=== PATIENT | female | born 1995 | race Hispanic/Latino ===

== ENCOUNTER 2023-01-20 18:05 | Emergency (ER) | payer OTHER ==
--- OUTSIDE RECORDS SUMMARY | 2023-01-20 18:10 | XMS REPORT | Continuity of Care Document ---
:1995 Author Organization [facility] t Address [address] [facility] [address] [place] [address] Care Team Providers Name Role Phone Pcp-None Primary Care Physician Unavailable MEGGAN JUNIOR Attending Clinician Unavailable ENZO BRADFORD Attending Clinician Unavailable Enzo Bradford Attending Clinician Unavailable Enzo Bradford DO Attending Clinician VASILIY CONTRERAS Attending Clinician Unavailable JIN GALINDO Attending Clinician Unavailable Cosme Yoder Attending Clinician Unavailable ANSLEY BARROSO Attending Clinician Unavailable ROMÁN CABRERA Attending Clinician Unavailable KIN LUCERO Attending Clinician Unavailable CORNELL LERMA Attending Clinician Unavailable JOSE GUADALUPE OCHOA Attending Clinician Unavailable DR JASE SAMUELS Attending Clinician Un available YOCASTA BURNETT Attending Clinician Unavailable DR GLEN GALEAS Attending Clinician Unavailable JEREMY KINNEY Attending Clinician Unavailable DR LIDA NIETO Attending Clinician Unavailable DR JASE SAMUELS Admitting Clinician Un available DR GLEN GALEAS Admitting Clinician Unavailable DR LIDA NIETO Admitting Clinician Unavailable Payers Payer Name Policy Type Policy Number Effective Date Expiration Date S [facility] [id number] 2022 00:00:00 [facility] [id number] 2022 00:00:00 2023 00:00 :00 Problems This patient has no known problems. Allergies, Adverse Reactions, Alerts Allergy Allergy Status Severity Reaction(s) Onset Inactive Treating Comm ents Source Name Type Date Date Clinician No Known [facility] 00:00: s 00 No Known DA Active U 2020-09 [facility] 10-17 Allergie 00:00: s 00 No Known DA Active [facility] Allergie Dodge s Social History Social Habit Start Date Stop Date Quantity Comments Source ASSERTION 2022-06-30 [facility] 00:00:00 Sexual orientation 2021-05-02 Heterosexual [facility] 14:50:24 (finding) Gender identity 2020-12-26 Identifies as [facility] 10:25:04 female gender (finding) Exposure to 2022-10-28 2022-11-07 Not sure [facility] SARS-CoV-2 (event) 00:00:00 13:28:00 Alcohol intake 2022-11-07 2022-11-07 [facility]00 of alcohol (finding) History of Social 2022-11-07 2022-11-07 [facility] function 00:00:00 00:00:00 Sex Assigned At [birth year] F [facility] alth 00:00:00 00:00:00 Smoking Status Start Date Stop Date Source Never smoked tobacco [facility] Medications This patient has no known medications. Vital Signs Vital Name Observation Time Observation Value Comments Source Height 2021-05-01 06:55:00 157.48 CM Weight 2021-05-01 06:55:00 54.43 KG Height 2021-04-04 15:50:00 165.1 CM Weight 2021-04-04 15:50:00 53.65 KG Height 2021-02-06 20:12:00 165.1 CM Weight 2021-02-06 20:12:00 54.43 KG Procedures This patient has no known procedures. Encounters Start End Encounter Admission Attending Care Care Encounter Source Date/Time Date/Time Type Type Clinicians Facility Department ID 2022-11-[address] [facility] [id number] [facility] 09:05:07 [id number] [facility] 2022-10-[address] [facility] [id number] [facility] 17:22:42 [id number] [facility] 2021-08-18 Inpatient [facility] [id number] [facility] 01:53:00 56 2023-01-24 2023-01-24 Outpatient MEGGAN JUNIOR [facility] [id number] [facility] 00:00:00 00:00:00 2023-01-17 2023-01-17 Outpatient MEGGAN JUNIOR [facility] [id number] [facility] 00:00:00 00:00:00 2023-01-13 2023-01-13 Outpatient SUZETTE, [facility] [id number] [facility] 08:30:18 08:54:09 KAIZEEN 2023-01-03 2023-01-03 Outpatient SUZETTE, [facility] [id number] [facility] 15:03:23 16:12:35 KAIZEEN 2022-12-06 2022-12-06 Outpatient SUZETTE, [facility] [id number] [facility] 09:08:48 10:34:52 KAIZEEN 2022-11-22 2022-11-22 Outpatient Elective Suzette, [facility] [id number] [facility] 13:09:00 13:10:00 Kaizeen 54 2022-11-22 2022-11-22 Outpatient Elective Suzette, [facility] [id number] [facility] 13:09:00 13:09:00 Kaizeen 54 2022-11-07 2022-11-07 Outpatient SUZETTE, [facility] [id number] [facility] 13:30:31 15:22:35 KAIZEEN 2022-11-05 2022-11-05 OB Suzette, [facility] [id number] [place] [address] 17:30:00 17:50:00 Enzo SHRESTHA [id number] [facility] .[id number] [facility] [id number] [address] 2022-11-05 2022-11-05 Outpatient SUZETTE, [facility] [id number] [facility] 00:00:00 00:00:00 KAIZEEN 2021-09-18 2021-09-18 Outpatient DIANE, VASILIY [facility] [id number] [facility] 00:00:00 00:00:00 2021-09-04 2021-09-04 Outpatient JEGANATHAN, [facility] [id number] [facility] 00:00:00 00:00:00 JIN 2021-09-04 2021-09-04 Outpatient JEGANATHAN, [facility] [id number] [facility] 00:00:00 00:00:00 JIN 2021-08-21 2021-08-21 Outpatient JEGANATHAN, [facility] [id number] [facility] 00:00:00 00:00:00 JIN 2021-08-18 2021-08-18 Outpatient Harms, [facility] [id number] [facility] 01:44:00 01:44:00 Cosme 56 2021-08-17 2021-08-17 Outpatient Harms, [facility] [id number] [facility] 21:51:00 21:51:00 Cosme 32 2021-08-17 2021-08-17 Outpatient Urgent Harms, [facility] [id number] [facility] 11:16:00 11:16:00 Cosme 15 2021-08-09 2021-08-09 Outpatient BARROSO, [facility] [id number] [facility] 08:12:38 11:31:47 ANSLEY 2021-08-02 2021-08-02 Outpatient CABRERA, [facility] [id number] [facility] 09:06:01 12:05:38 ROMÁN 2021-07-26 2021-07-26 Outpatient CABRERA, [facility] [id number] [facility] 08:18:21 08:56:35 ROMÁN 2021-07-19 2021-07-19 Outpatient JEGANATHAN, [facility] [id number] [facility] 00:00:00 00:00:00 JIN 2021-07-10 2021-07-10 Outpatient SEALOCK, [facility] [id number] [facility] 10:46:05 11:04:35 KIN 2021-07-05 2021-07-05 Outpatient CABRERA, [facility] [id number] [facility] 15:29:18 16:02:25 ROMÁN 2021-06-19 2021-06-19 Outpatient LERMA, [facility] [id number] [facility] 16:27:44 16:57:06 ENJOLI 2021-06-19 2021-06-19 Outpatient LERMA, [facility] [id number] [facility] 15:52:34 16:49:47 ENJOLI 2021-06-11 2021-06-11 Outpatient VASILIY CONTRERAS [facility] [id number] [facility] 00:00:00 00:00:00 2021-06-05 2021-06-05 Outpatient JEGANATHAN, [facility] [id number] [facility] 00:00:00 00:00:00 JIN 2021-05-07 2021-05-07 Outpatient LERMA, [facility] [id number] [facility] 09:57:28 11:45:44 ENJOLI 2021-05-07 2021-05-07 Outpatient JEGANATHAN, [facility] [id number] [facility] 00:00:00 00:00:00 JIN 2021-05-04 2021-05-04 Outpatient OCHOA, [facility] [id number] [facility] 00:00:00 00:00:00 JOSE GUADALUPE 2021-05-01 2021-05-01 Outpatient E YOJANA-IBITO [facility] OB [id number] [facility] 09:49:00 13:09:00 Elvira UNDERWOODa [facility] 2021-04-30 2021-04-30 Outpatient JEGANATHAN, [facility] [id number] [facility] 00:00:00 00:00:00 JIN 2021-04-26 2021-04-26 Outpatient BARROSO, [facility] [id number] [facility] 14:08:37 15:23:44 ANSLEY 2021-04-19 2021-04-19 Outpatient BARROSO, [facility] [id number] [facility] 00:00:00 00:00:00 ANSLEY 2021-04-06 2021-04-06 Outpatient LERMA, [facility] [id number] [facility] 12:48:05 13:33:36 ENJOLI 2021-04-05 2021-04-05 Outpatient HORTENCIA, [facility] [id number] [facility] 00:00:00 00:00:00 YOCASTA 2021-04-04 2021-04-04 Emergency E GUDELIA, [facility] ECC [id number] [facility] 15:10:00 16:00:00 [facility] 2021-03-22 2021-03-22 Outpatient MATEO, [facility] [id number] [facility] 13:04:15 17:29:20 JIN 2021-03-02 2021-03-02 Outpatient NIRMAL, [facility] [id number] [facility] 12:34:21 17:01:32 JEREMY 2021-02-15 2021-02-15 Outpatient CHIO, [facility] [id number] [facility] 13:04:55 14:01:57 ANSLEY 2021-02-06 2021-02-06 Emergency E GERSON, [facility] [id number] [facility] 19:54[facility] 22:39:00 [facility] Results Test Description Test Time Test Comments Results Result Comments Source Complete Blood Count Auto Diff 2021-08-18 17:20:00 Test Item Value Reference Range Interpretation Comme nts White Blood Count (test code = WBCT) 13.8 x10 3/uL 4.4-10.5 H Red Blood Count (test code = RBC) 3.38 x10 6/uL 3.75-5.20 L Hemoglobin (test code = HGBT) 10.7 g/dL 12.2-14.8 L Hematocrit (test code = HCTT) 31.7 % 36.5-44.4 L Mean Corpuscular Volume (test code = MCV) 93.80 fL 80.00-100.00 N Mean Corpuscular Hemoglobin (test code = MCH) 31.7 pg 27.0-32. 5 N Mean Corpuscular HGB Conc (test code = MCHC) 33.80 g/dL 32.00-37. 50 N RDW Coefficient of Variation (test code = RDWCV) 14.3 % 11.5- 14.5 N Platelet Count (test code = PLTT) 195.0 x10 3/uL 140.0-440.0 N Mean Platelet Volume (test code = MPV) 9.8 fL Immature Granulocytes % (Auto) (test code = IMMGRAN%) 0.4 % 0.0-5.0 N Neutrophils % (Auto) (test code = NE%) 78.2 % 36.0-70.0 H Lymphocytes % (Auto) (test code = LY%) 14.0 % 12.0-44.0 N Monocytes % (Auto) (test code = MO%) 6.8 % 0.0-11.0 N Eosinophils % (Auto) (test code = EO%) 0.4 % 0.0-7.0 N Basophils % (Auto) (test code = BA%) 0.2 % 0.0-2.0 N Immature Granulocytes # (Auto) (test code = IMMGRAN#) 0.06 x10 3/uL Neutrophils # (Auto) (test code = NE#) 10.7 x10 3/uL 1.6-7.4 H Lymphocytes # (Auto) (test code = LY#) 1.92 x10 3/uL 0.50-4.60 N Monocytes # (Auto) (test code = MO#) 0.94 x10 3/uL 0.00-1.20 N Eosinophils # (Auto) (test code = EO#) 0.06 x10 3/uL 0.00-0.74 N Basophils # (Auto) (test code = BA#) 0.03 x10 3/uL 0.00-0.21 N nRBC Abs (test code = NRBCA) 0 nRBC Pct (test code = NRBCP) 0 % ACG, Cord Arterial Blood [id number] 04:50:00 Test Item Value Reference Range Interpretation Comments A-aDO2 Cord 60.5 mmHg Arterial (test code = CORDAAaDpO2) Hct, BG Cord 54 % 40-70 Arterial (test code = CORDAHct) Cord Arterial 7.25 7.32-7.43 [facility] Blood PH (test Center Blood Gas code = CORDApH) Pattie Du edical DirectorJULIA brooke [id number] Cord Art Blood 7.25 7.32-7.43 PH Corrected (test code = CORDApH(T)) Cord Arterial 59 mmHg 27-40 Blood CO2 (test code = CORDApCO2) Cord Arterial 58.7 mmHg 27-40 CO2 Corrected (test code = CORDApCO2(T)) Cord Arterial 24 mmHg 60-70 Critical value called Blood PO2 (test to guillermo goodwin by [] code = CORDApO2) on: 1 at 0456by INFCE. Cord Art Blood 23.7 mmHg 60-70 PO2 Corrected (test code = CORDApO2(T)) Cord Arterial 26.0 mmol/l Blood HCO3 (test code = CORDAHCO3-) Cord Arterial -2.7 mmol/l Bld Base Excess (test code = CORDAABE) Cord Arterial 21.0 % Blood FIO2 (test code = CORDAFIO2) OID/SITE (test Umbilical code = SITE) Source (test Cord Blood code = Sample Arterial type) Specimen Drawn JORDYN By (test code = Drawn by) Sample Age (test 37 code = Sample Age) Coronavirus PCR, COVID19 [id number] 03:00:00 Test Item Value Reference Range Interpretation Comments Coronavirus PCR, For use under Emergency COVID19 Rapid (test Use Authorization (EUA) code = SARSCOV2) only. Coronavirus PCR, Reference Range: COVID19 Rapid (test Negative code = KZPXMGI28.1) SARS-CoV-2 PCR Result: Positive by RT-PCR A (test code = SARS-CoV-2 PCR Result:) COVID-19 Status: AsymptomaticComplete Blood Count w/o [id number] 01:45:00 Test Item Value Reference Range Interpretation Comments White Blood Count (test code = 12.1 x10 3/uL 4.4-10.5 H WBCT) Red Blood Count (test code = 3.80 x10 6/uL 3.75-5.20 N RBC) Hemoglobin (test code = HGBT) 11.9 g/dL 12.2-14.8 L Hematocrit (test code = HCTT) 36.3 % 36.5-44.4 L Mean Corpuscular Volume (test 95.50 fL 80.00-100.00 N code = MCV) Mean Corpuscular Hemoglobin 31.3 pg 27.0-32.5 N (test code = MCH) Mean Corpuscular HGB Conc 32.80 g/dL 32.00-37.50 N (test code = MCHC) RDW Coefficient of Variation 14.3 % 11.5-14.5 N (test code = RDWCV) Platelet Count (test code = 246.0 x10 3/uL 140.0-440.0 N PLTT) Mean Platelet Volume (test 9.9 fL code = MPV) nRBC Abs (test code = NRBCA) 0 nRBC Pct (test code = NRBCP) 0 % Syphilis [id number] 01:45:00 Test Item Value Reference Range Interpretation Comments Syphilis Non-Reactive NonReactive Nonreactive: Sa mples with Antibody (test a value < 0.9 0 Index code = SYPAB) areconsidered nonreactive for syphilis T. pallidum antibodies.Reac tive: Samples with a value = 1.10 Index are consideredreact shine for syphilis T. pal lidum antibodies.Equi vocal: Samples with a value = 0.90 Index and < 1.10Index are c onsidered equivocal. U/S >14 [id number] 09:13:41 [facility] 1995 Sex: FExam: Obstetrical ultrasound.CLINICAL HISTORY: Acute pelvic pain.LOCATION: D4.FINDINGS: Real-time grayscale sonographic evaluation is performed including Doppler evaluation. No comparison studies. The cervix measures 3.8 cm in length. The fetus is in variable presentation during this exam. There is a fundal grade 2 placenta without evidence of placenta previa. No abnormalities noted of the intracranial contents or of the spine. The stomach, kidneys, and bladder are identified. There is a three-vessel umbilical cord with no abnormalities noted at the cord insertion site. There is a four-chamber heart with heart rate of 152 bpm. Amniotic fluid index is 18.5 cm. BPD: 5.9 cm, 24 weeks 1 day HC: 21.9 cm, 24 weeks 0 days AC: 19.4 cm, 24 weeks 1 day FL: 4.1 cm, 23 weeks 2 days Femur length/BPD ratio is below normal limits. Estimated weight is 629 grams. This corresponds to the 40th percentile based on ultrasound age. The maternal adnexa are not visualized due to gestational age.IMPRESSION:1. There is a single viable intrauterine gestation currently in variable presentation. Ultrasound estimated gestational age is 23 weeks 6 days (menstrual age is not given).2. Femur length lags slightly behind the other measurements at 23 weeks 2 days. Femur length/BPD ratio is below normal limits. This may be related to constitutionally small fetus. Ultrasound follow-up may be performed.Electronically signed by: Moises Monte MD 05/01/2021 9:13 AM CDT -BjW (RAPID ANTIGEN)2021-05-01 08:59:00 Test Item Value Reference Range Interpretation Comments SARS-CoV (ANTIGEN) NEGATIVE NEGATIVE (test code = COVAG) COVID AG (test This test has been code = COVAGC) marketed under the FDA Emergency Use Authorization (EUA) to meet challenges of the COVID-19 pandemic. The validation standards normally enforced by the FDA and the College of the [employer] (CAP) are more stringent than those required for this test. Therefore, the result should be interpreted with caution and close attention to other clinical and epidemiological data URINALYSIS WITH [id number] 08:34:00 Test Item Value Reference Range Interpretation Comments COLOR (test code = COLU) YELLOW YELLOW CLARITY (test code = CLA) CLOUDY CLEAR A GLUCOSE UR (test code = UA NEGATIVE NEGATIVE GLUCOSE) BILI UR (test code = BILE) NEGATIVE NEGATIVE KETONES UR (test code = IVAN) NEGATIVE NEGATIVE SP GRAVITY (test code = SPGR) 1.019 1.005-1.030 PH UR (test code = PH) 6.5 4.5-8.0 PROTEIN UR (test code = PU) NEGATIVE NEGATIVE UROBIL UR (test code = UROQ) 0.2 EU/dL 0.2-1.0 NITRITE UR (test code = NEGATIVE NEGATIVE NITRITE) BLOOD UR (test code = UA BLOOD) NEGATIVE NEGATIVE LEUK ES UR (test code = LEUK) 1+ NEGATIVE A WBC UR (test code = UWBC) 6 /HPF 0-5 H RBC UR (test code = URBC) 0 /HPF 0-2 EPITH UR (test code = UEPC) MODERATE /LPF FEW A BACTERIA UR (test code = UBACT) MODERATE /HPF NONE A CAST UR (test code = CAST) /LPF NONE CRYSTAL UR (test code = CRYU) / LPF NONE MUCUS UR (test code = MUC) / HPF NONE AMORPH UR (test code = ESSENCE) / HPF NONE TRICH UR (test code = UTRICH) /HPF NONE YEAST UR (test code = UY) /HPF NONE SPERM UR (test code = USPERM) /HPF NONE WET [id number] 08:30:00 Test Item Value Reference Range Interpretation Comments Direct Exam (test MANY WHITE BLOOD CELLS code = DE1) SEEN Direct Exam (test RARE EPITHELIAL CELLS code = DE2) SEEN Direct Exam (test NO CLUE CELLS SEEN code = DE3) Direct Exam (test NO TRICHOMONAS SEEN code = DE4) Direct Exam (test FEW BACTERIA SEEN code = DE5) Direct Exam (test NO YEAST A code = DE6) URINE [id number] 08:41:00 Test Item Value Reference Range Interpretation Comments Culture Observations THREE OR MORE SPECIES (test code = COB1) OF BACTERIA ISOLATED. PROBABLE CONTAMINATION. Culture Observations IDENTIFICATION AND (test code = COB17) SUSCEPTIBILITY NOT INDICATED. RECOLLECTION RECOMMENDED URINALYSIS WITH [id number] 15:49:00 Test Item Value Reference Range Interpretation Comments COLOR (test code = COLU) YELLOW YELLOW CLARITY (test code = CLA) CLOUDY CLEAR A GLUCOSE UR (test code = UA TRACE NEGATIVE A GLUCOSE) BILI UR (test code = BILE) NEGATIVE NEGATIVE KETONES UR (test code = IVAN) NEGATIVE NEGATIVE SP GRAVITY (test code = SPGR) 1.021 1.005-1.030 PH UR (test code = PH) 6.5 4.5-8.0 PROTEIN UR (test code = PU) NEGATIVE NEGATIVE UROBIL UR (test code = UROQ) 1.0 EU/dL 0.2-1.0 NITRITE UR (test code = NEGATIVE NEGATIVE NITRITE) BLOOD UR (test code = UA BLOOD) NEGATIVE NEGATIVE LEUK ES UR (test code = LEUK) 3+ NEGATIVE A WBC UR (test code = UWBC) 20 /HPF 0-5 H RBC UR (test code = URBC) 4 /HPF 0-2 H EPITH UR (test code = UEPC) FEW /LPF FEW BACTERIA UR (test code = UBACT) MODERATE /HPF NONE A CAST UR (test code = CAST) /LPF NONE CRYSTAL UR (test code = CRYU) / LPF NONE MUCUS UR (test code = MUC) / HPF NONE AMORPH UR (test code = ESSENCE) / HPF NONE TRICH UR (test code = UTRICH) /HPF NONE YEAST UR (test code = UY) /HPF NONE SPERM UR (test code = USPERM) /HPF NONE URINE [id number] 15:43:00 Test Item Value Reference Range Interpretation Comments PREG UR (test code = PGU) POSITIVE NEGATIVE A DIRECT STREP GROUP [id number] 10:18:00 Test Item Value Reference Range Interpretation Comments Culture Observations NO BETA HEMOLYTIC (test code = COB1) STREPTOCOCCUS ISOLATED Direct Exam (test code NEGATIVE FOR STREP A = DE1) ANTIGEN GLUCOMETER GLUCOSE- LAB USE [id number] 22:22:00 Test Item Value Reference Range Interpretation Comments GLUCOMETER (test code 126 mg/dL 70-100 H Meter ID: = GMG) [id number] tor: [id number] GRAHAMBER T TOVAR [id number] 21:59:00 Test Item Value Reference Range Interpretation Comments COLOR (test code = COLU) YELLOW YELLOW CLARITY (test code = CLA) CLEAR CLEAR GLUCOSE UR (test code = UA GLUCOSE) NEGATIVE NEGATIVE BILI UR (test code = BILE) NEGATIVE NEGATIVE KETONES UR (test code = IVAN) NEGATIVE NEGATIVE SP GRAVITY (test code = SPGR) 1.013 1.005-1.030 PH UR (test code = PH) 7.5 4.5-8.0 PROTEIN UR (test code = PU) NEGATIVE NEGATIVE UROBIL UR (test code = UROQ) 0.2 EU/dL 0.2-1.0 NITRITE UR (test code = NITRITE) NEGATIVE NEGATIVE BLOOD UR (test code = UA BLOOD) NEGATIVE NEGATIVE LEUK ES UR (test code = LEUK) NEGATIVE NEGATIVE AUAM (test code = AUAM) NO NO DIRECT INFLUENZA A AND B [id number] 21:16:00 Test Item Value Reference Range Interpretation Comments Direct Exam (test PRESUMPTIVE NEGATIVE FOR code = DE1) THE PRESENCE OF INFLUENZA ANTIGEN SARS-CoV (RAPID ANTIGEN)2021-02-06 21:13:00 Test Item Value Reference Range Interpretation Comments SARS-CoV (ANTIGEN) NEGATIVE NEGATIVE (test code = COVAG) COVID AG (test This test has been code = COVAGC) marketed under the FDA Emergency Use Authorization (EUA) to meet challenges of the COVID-19 pandemic. The validation standards normally enforced by the FDA and the College of the [employer] (CAP) are more stringent than those required for this test. Therefore, the result should be interpreted with caution and close attention to other clinical and epidemiological data AMYLASE AND [id number] 21:10:00 Test Item Value Reference Range Interpretation Comments AMYLASE (test code = 10A) 54 U/L 28-100 LIPASE (test code = 60A) 164 IU/L 73-393 [id number] 21:10:00 Test Item Value Reference Range Interpretation Comments CPK (test code = 32A) 66 IU/L 26-192 COMPREHENSIVE METABOLIC [id number] 21:10:00 Test Item Value Reference Range Interpretation Comments GLUCOSE (test code 68 mg/dL 75-100 L = 06D) SODIUM (test code 139 mmol/L 136-145 = 01A) POTASSIUM (test 3.6 mmol/L 3.6-5.1 code = 01B) CHLORIDE (test 107 mmol/L 98-107 code = 04A) CO2 (test code = 26 mmol/L 22-32 02A) ANION GAP (test 9.6 mmol/L code = ANG) BUN (test code = 9 mg/dL 7-18 05D) CREATININE (test 0.6 mg/dL 0.4-1.1 code = 03E) GFR (test code = 126 See_Comment [Automated GFR) mL/min/1.73m\S\2 message] Th e system which generated this result transmit xenia reference range : >=90. The reference range was not used to interpret this result as normal/abnormal . GFR 146 See_Comment [Automated [place] (test mL/min/1.73m\S\2 message] The code = GFRAA) system which generated this result transmit xenia reference range : >=90. The reference range was not used to interpret this result as normal/abnormal . EGFR (test code = eGFR BY EGFR) CKD-EPI CALCULATION IS NOT RECOMMENDED FOR PATIENTS UNDER 18 YEARS OF AGE. BUN/CREA (test 15 12-20 code = BCR) CALCIUM (test code 8.5 mg/dL 8.3-9.5 = 09D) BILI TOTAL (test 0.2 mg/dL 0.2-1.0 code = 11A) PROTEIN (test code 7.1 g/dL 6.4-8.2 = 07D) ALBUMIN (test code 3.2 g/dL 3.5-4.8 L = 08D) GLOBULIN (test 3.9 g/dL 1.5-3.8 H code = GLB) ALB/GLOB (test 0.8 1.0-2.6 L code = AGRR) ALK PHOS (test 66 IU/L 42-121 code = 35A) AST (test code = 15 IU/L See_Comment [Automated 30A) message] The system which generated this result transmit xenia reference range : <=42. The reference range was not used to interpret this result as normal/abnormal . ALT (test code = 14 IU/L See_Comment [Automated 31A) message] The system which generated this result transmit xenia reference range : <=78. The reference range was not used to interpret this result as normal/abnormal . BRAIN NATRIURETIC [id number] 21:07:00 Test Item Value Reference Range Interpretation Comments proBNP (test code = PBNP) 74 pg/mL 0-125 [id number] 21:03:00 Test Item Value Reference Range Interpretation Comments FERRITIN (test code = A19) 21.8 ng/mL 8.0-252.0 LDH-LACTIC [id number] 21:03:00 Test Item Value Reference Range Interpretation Comments LDH (test code = 33A) 147 IU/L 100-190 TROPONIN [id number] 21:03:00 Test Item Value Reference Range Interpretation Comments TROPONIN I (test code = A84) <0.015 ng/mL 0.000-0.045 C-REACTIVE PROTEIN [id number] 20:59:00 Test Item Value Reference Range Interpretation Comments CRP QUANT (test code 3.9 mg/L 0.0-2.9 H = CRPQ) Method Change (test Please note the code = METHOD) change in Method and the reference range [id number] 20:57:00 Test Item Value Reference Range Interpretation Comments MAGNESIUM (test code = 48A) 2.0 mg/dL 1.8-2.4 PRO TIME AND [id number] 20:41:00 Test Item Value Reference Range Interpretation Comments PT (test code = 10.2 s 9.8-13.6 TT) INR (test code = 0.9 INR) INRH (test code = SUGGESTED THERAPEUTIC INRH) RANGE FOR INR: 2.5 - 3.5 For Patients with Prosthetic Valves or Patients with recurrent Thromboembolic Events 2.0 - 3.0 For Most Other Applications PTT (test code = 31.2 s 20.2-38.0 PTT) PTTH (test code = To monitor the PTTH) effectiveness of heparin, we offer the Anti-Xa (Heparin Assay). It can be used for either unfractionated or LMW Heparin. Order Code is ANTI-XA [id number] 20:41:00 Test Item Value Reference Range Interpretation Comments D-DIMER (test code = <200 ng/mL D-DU 0-234 DDI) D-DIMER COMMENT (test *Level to rule out code = DDCOM) DVT or PE: <235 ng/mL D-DU* CBC (INCLUDES AUTOMATED DIFFERENTIAL)2021-02-06 20:31:00 Test Item Value Reference Range Interpretation Comments WBC (test code = WBC) 10.8 10\S\3/uL 4.5-11.0 RBC (test code = RBC) 3.90 10\S\6/uL 4.30-5.70 L HGB (test code = HBG) 12.4 g/dL 12.0-15.5 HCT (test code = HCT) 35.7 % 35.0-44.0 MCV (test code = MCV) 91.5 fL 81.0-99.0 MCH (test code = MCH) 31.8 pg 27.0-31.0 H MCHC (test code = MCHC) 34.7 g/dL 32.0-36.0 RDW (test code = RDW) 12.9 % 11.5-14.5 PLT (test code = PLT) 270 10\S\3/uL 130-400 MPV (test code = MPV) 9.2 fL 9.4-12.4 L NEUTROP # (test code = NE#) 7.8 10\S\3/uL 1.6-8.0 LYMPH # (test code = LY#) 1.7 10\S\3/uL 1.1-3.5 MONOCYTE # (test code = MO#) 0.6 10\S\3/uL 0.0-1.1 EOSINOPH # (test code = EO#) 0.7 10\S\3/uL 0.0-0.7 BASOPHIL # (test code = BA#) 0.0 10\S\3/uL 0.0-0.3 IG # (test code = IG#) 0.05 10\S\3/uL 0.00-0.06 NRBC # (test code = NRBC#) 0.00 10\S\3/uL 0.00-0.01 NEUTROPH % (test code = NE%) 72.0 % 35.0-73.0 LYMPH % (test code = LY%) 16.0 % 20.0-55.0 L MONO % (test code = MO%) 5.2 % 2.5-10.0 EOSINOPH % (test code = EO%) 6.0 % 0.0-5.0 H BASOPHIL % (test code = BA%) 0.3 % 0.0-2.0 IG % (test code = IG%) 0.5 % 0.0-0.8 NRBC% (test code = NRBC%) 0.0 % 0.0-0.2 MANDIFF (test code = MDIFF) NO RBC MORPH (test code = RBCMOR) NORMAL US OB >=14 weeks Fetus [facility] [address] [place] [address] Patient Name: Genet Live V Medical Record#: [id number] Address: [address] City/State/Zip: [place] [address]: Enzo Bradford DO Insurance: [facility] /Age/Sex: 1995// Self Pay Admit/Reg Date: 11/22/[address]: Aniya Loaiza Location: [facility]/ PCP: Pcp-Md SHANTAL Restrepo Date of Service: 11/22/22 Order (s): US OB >=14 weeks Fetus CPT Code: 59045 Report Number: [id number] Reason for Exam: N91.2 Location of dictation: B2 OB Ultrasound Complete COMPARISON: None TECHNIQUE: Real-time sonography was performed transabdominally with the 4 MHz transducer. FINDINGS: There is a single living intrauterine fetusin breech presentation. Placenta is anterior, Grade 1. There is no evidence of placental abruption nor placenta previa. Cervix is closed, measuring 3.7 cm length. Amniotic fluid volume is within normallimits with VALORIE of 15.8cm. ANATOMIC SURVEY: No gross abnormalities of the cranium, spine, mid face,4-chamber heart, stomach bubble, kidneys, bladder , cord insertion site and 3-vessel cord.Both upper and lower extremities were well seen. heart rate: 140 BPM Average sonographic age of the fetus is 23 weeks 5 days with TRICIA of 2523 based on the following: Biparietal diameter: 5.6 cm Head circumference: 21.8 cm Abdominal circumference: 18.9 cm Femur length: 4.3 cm ratios are normal. Menstrual age by LMP is 22 weeks 5 days with TRICAI of 03/23/2023. Estimated weight: 628 grams. weight percentile: 90% based on patient's LMP of 06/16/2022. No abnormality of the maternal adnexae. IMPRESSION: 1. Single living intrauterine fetus at 23 weeks 5 days sonographic age in breech presentation. 2. No anomalies identified. 3. No evidence for placenta previa nor abruption. 4. The cervix is closed. Electronically signed by: Tennille Snell MD 11/22/2022 4:21 PM RESTAURANT HOST/HOSTESS Dictated By: Tennille Snell MD 11/22/221605 Signed By: Tennille Snell MD 11/22/221622 TD/TT: 11/22/221605 Tech: [id number] cc: [id number]; PCPNO* Enzo Bradford DO; Pcp-Md SHANTAL Restrepo
[2023-01-20] MEDS ORDERED: NA CHLORIDE 0.9% 1,000 ML ONE (18:40)
--- NOTE | 2023-01-20 18:46 | EDPHYS ---
Physician Documentation [facility] Name: Genet Lopez Age: 27 yrs Sex: Female : 1995 Arrival Date: 01/20/2023 Time: 18:05 Bed 8 Private MD: ED Physician Mickey Mcintosh HPI: 01/20 18:32 This 27 yrs old Female presents to ER via Ambulatory with complaints of shanelle Abdominal Pain, 30 Weeks . DIE TESTER: 18:27 4, Full Term 3, Premature 0, 0, Living 3 mb9 19:29 4, Full Term 3, Premature 0, 0, Living 0 shanelle Historical: - Allergies: 18:19 No Known Allergies; mb9 - Home Meds: 18:19 None [Active]; mb9 - PMHx: 18:19 None; mb9 - PSHx: 18:19 None; mb9 - Immunization history:: Adult Immunizations up to date. - Social history:: Smoking status: Patient denies any tobacco usage or history of. ROS: 18:35 Constitutional: Negative for fever, chills, and weight loss, Eyes: Negative for injury, shanelle pain, redness, and discharge, ENT: Negative for injury, pain, and discharge, Neck: Negative for injury, pain, and swelling, Cardiovascular: Negative for chest pain, palpitations, and edema, Respiratory: Negative for shortness of breath, cough, wheezing, and pleuritic chest pain, Back: Negative for injury and pain, : Negative for injury, bleeding, discharge, and swelling, MS/Extremity: Negative for injury and deformity, Skin: Negative for injury, rash, and discoloration, Neuro: Negative for headache, weakness, numbness, tingling, and seizure, Psych: Negative for depression, anxiety, suicide ideation, homicidal ideation, and hallucinations, Allergy/Immunology: Negative for hives, rash, and allergies, Endocrine: Negative for neck swelling, polydipsia, polyuria, polyphagia, and marked weight changes, Hematologic/Lymphatic: Negative for swollen nodes, abnormal bleeding, and unusual bruising. 18:35 Abdomen/GI: Positive for abdominal pain, abdominal distension, of the right upper quadrant, left upper quadrant, right lower quadrant and left lower quadrant. Exam: 18:35 Constitutional: This is a well developed, well nourished patient who is awake, alert, shanelle and in no acute distress. Head/Face: Normocephalic, atraumatic. Eyes: Pupils equal round and reactive to light, extra-ocular motions intact. Lids and lashes normal. Conjunctiva and sclera are non-icteric and not injected. Cornea within normal limits. Periorbital areas with no swelling, redness, or edema. ENT: Nares patent. No nasal discharge, no septal abnormalities noted. Tympanic membranes are normal and external auditory canals are clear. Oropharynx with no redness, swelling, or masses, exudates, or evidence of obstruction, uvula midline. Mucous membranes moist. Neck: Trachea midline, no thyromegaly or masses palpated, and no cervical lymphadenopathy. Supple, full range of motion without nuchal rigidity, or vertebral point tenderness. No Meningismus. Chest/axilla: Normal chest wall appearance and motion. Nontender with no deformity. No lesions are appreciated. Cardiovascular: Regular rate and rhythm with a normal S1 and S2. No gallops, murmurs, or rubs. Normal PMI, no JVD. No pulse deficits. Respiratory: Lungs have equal breath sounds bilaterally, clear to auscultation and percussion. No rales, rhonchi or wheezes noted. No increased work of breathing, no retractions or nasal flaring. Back: No spinal tenderness. No costovertebral tenderness. Full range of motion. Skin: Warm, dry with normal turgor. Normal color with no rashes, no lesions, and no evidence of cellulitis. MS/ Extremity: Pulses equal, no cyanosis. Neurovascular intact. Full, normal range of motion. Neuro: Awake and alert, GCS 15, oriented to person, place, time, and situation. Cranial nerves II-XII grossly intact. Motor strength 5/5 in all extremities. Sensory grossly intact. Cerebellar exam normal. Normal gait. Psych: Awake, alert, with orientation to person, place and time. Behavior, mood, and affect are within normal limits. 18:35 Abdomen/GI: Inspection: distension, gravid appearance, is noted, Bowel sounds: normal, Palpation: nontender, in all quadrants, Liver: no appreciated palpable abnormalities, Hernia: not appreciated. 19:32 : CVA tenderness, is absent, Pelvic Exam: External exam: is normal, Speculum exam: no shanelle bleeding is noted, os that is closed, bimanual exam reveals no cervical motion tenderness, os that is closed, gravid uterus, discharge, is not appreciated, the nurse was present for the exam, Gravid exam: Fundal height: consistent with gestational age, lie: transverse, heart tones: 150 beats/min, the nurse was present for the exam, Bladder: is normal, Sexual behavior: the patient is sexually active, and reports a single partner. Vital Signs: 18:13 BP 104 / 70; Pulse 68; Resp 18; Temp 98.1; Pulse Ox 100% ; Weight 56.7 kg; Height 5 ft. mb9 4 in. ; Pain 8/10; 19:44 BP 110 / 76; Pulse 75; Resp 17; Pulse Ox 100% ; nj1 20:00 BP 107 / 68; Pulse 65; Resp 18; Pulse Ox 100% ; nj1 18:13 Body Mass Index 21.46 (56.70 kg, 162.56 cm) mb9 18:13 Pain Scale: Adult mb9 MDM: 18:27 Patient medically screened. shanelle 18:39 Differential diagnosis: Surry brunner, delivery of , non-specific abd pain, shanelle pancreatitis, urinary tract infection. Data reviewed: vital signs, nurses notes, lab test result(s), EKG, radiologic studies, ultrasound. Consideration of Admission/Observation Escalation of care including admission/observation considered. Test considered but Not performed: EKG: NO EKG. Historians other than the Patient: AZERI SPEAKING NURSE. Care significantly affected by the following chronic conditions: NO HX. 01/20 18:28 Order name: Abo/rh Typing [facility] 01/20 18:28 Order name: Basic Metabolic Panel; Complete Time: 19:33 [facility] 01/20 18:28 Order name: CBC with Diff; Complete Time: 19:33 [facility] 01/20 18:28 Order name: Test, Urine 01/20 18:28 Order name: Urinalysis w/ reflexes 01/20 18:28 Order name: US OB Limited; Complete Time: 19:33 shanelle 01/20 18:28 Order name: IV Saline Lock; Complete Time: 19:10 01/20 18:28 Order name: Labs collected and sent; Complete Time: 19:10 shanelle 01/20 18:28 Order name: NPO; Complete Time: 19:11 [facility] 01/20 18:28 Order name: Misc. Order: OXYGEN , LEFT SIDE; Complete Time: 19:10 [facility] 01/20 18:58 Order name: Pelvic Exam Setup; Complete Time: 19:10 [facility] 01/20 18:58 Order name: FHT's; Complete Time: 19:10 [facility] 01/20 19:34 Order name: PO challenge: JUICE; Complete Time: 20:30 shanelle Administered Medications: 18:40 Drug: NS 0.9% IV 1000 ml Route: IV; Rate: 1 bolus; Site: left antecubital; nj1 19:40 Follow up: Response: No adverse reaction; IV Status: Completed infusion; IV Intake: nj1 1000ml Disposition Summary: 01/20/23 18:45 Transfer Ordered Transfer Location: [facility] Reason: Higher level of care shanelle Condition: Fair shanelle Problem: new shanelle Symptoms: have improved shanelle Accepting Physician: TO DR BANDAR GONZALES(01/20/23 21:08) nj1 Diagnosis - 30 weeks gestation of shanelle - Abdominal tenderness shanelle Forms: - Medication Reconciliation Form shanelle - SBAR form shanelle Signatures: Dispatcher [employer] EDND Mickey Mcintosh MD MD cha Breneman, Waleska Hendrickson RN RN mb9 Gayathri Paulino RN RN nj1 Corrections: (The following items were deleted from the chart) 19: 18:54 TRANSVAG OB CERVIX ASSESSMENT ordered. [facility] EDND : 18:[address] PORTILLO ALRUPALI GONZALES cha nj1
--- NOTE | 2023-01-20 18:46 | ER ---
Nurse's Notes [facility] Name: Genet Lopez Age: 27 yrs Sex: Female : 1995 Arrival Date: 01/20/2023 Time: 18:05 Bed 8 Private MD: Diagnosis: 30 weeks gestation of ;Abdominal tenderness Presentation: 01/20 18:13 Chief complaint: Patient states: "Last night I started having pain under my belly on mb9 both sides It would come and go and I couldn't move or stand up. I've never had pain like this before.. It feels like throbbing. I've had pain like this before with my other pregnancies right before I ws about to deliver". Coronavirus screen: Vaccine status: Patient reports receiving the 2nd dose of the covid vaccine. Ebola Screen: No symptoms or risks identified at this time. Initial Sepsis Screen: Does the patient meet any 2 criteria? No. Patient's initial sepsis screen is negative. Does the patient have a suspected source of infection? No. Patient's initial sepsis screen is negative. Risk Assessment: Do you want to hurt yourself or someone else? Patient reports no desire to harm self or others. Onset of symptoms. 18:13 Method Of Arrival: Ambulatory mb9 18:13 Acuity: RUTH 2 mb9 18:27 Note [place] number [id number]. mb9 ASPARAGUS BUNCHER: 18:27 4, Full Term 3, Premature 0, 0, Living 3 mb9 19:29 4, Full Term 3, Premature 0, 0, Living 0 shanelle Historical: - Allergies: 18:19 No Known Allergies; mb9 - Home Meds: 18:19 None [Active]; mb9 - PMHx: 18:19 None; mb9 - PSHx: 18:19 None; mb9 - Immunization history:: Adult Immunizations up to date. - Social history:: Smoking status: Patient denies any tobacco usage or history of. Screenin:30 [facility] ED Fall Risk Assessment (Adult) History of falling in the last 3 months, nj1 including since admission No falls in past 3 months (0 pts) Confusion or Disorientation No (0 pts) Intoxicated or Sedated No (0 pts) Impaired Gait No (0 pts) Mobility Assist Device Used No (0 pt) Altered Elimination No (0 pt) Score/Fall Risk Level 0 - 2 = Low Risk Oriented to surroundings, Maintained a safe environment, Hourly rounding (assess needs \\T\\ fall precautionary measures) done. Abuse screen: Denies threats or abuse. Denies injuries from another. Nutritional screening: No deficits noted. Tuberculosis screening: No symptoms or risk factors identified. Assessment: 18:25 General: Appears in no apparent distress. uncomfortable, Behavior is calm, cooperative, nj appropriate for age. Pain: Complains of pain in abdomen Pain currently is 8 out of 10 on a pain scale. Quality of pain is described as pressure. Neuro: Level of Consciousness is awake, alert, obeys commands, Oriented to person, place, time, situation. Cardiovascular: Patient's skin is warm and dry. Respiratory: Airway is patent Respiratory effort is even, unlabored. : Reports Abdominal pain, 31 wks gestation, TRICIA 03/11/2023. 20:25 Reassessment: Patient appears in no apparent distress at this time. Patient and/or pr1 family updated on plan of care and expected duration. Pain level reassessed. Patient is alert, oriented x 3, equal unlabored respirations, skin warm/dry/pink. Vital Signs: 18:13 BP 104 / 70; Pulse 68; Resp 18; Temp 98.1; Pulse Ox 100% ; Weight 56.7 kg; Height 5 ft. mb9 4 in. ; Pain 8/10; 19:44 BP 110 / 76; Pulse 75; Resp 17; Pulse Ox 100% ; nj1 20:00 BP 107 / 68; Pulse 65; Resp 18; Pulse Ox 100% ; nj1 18:13 Body Mass Index 21.46 (56.70 kg, 162.56 cm) mb9 18:13 Pain Scale: Adult mb9 Vitals: 18:40 Heart Tones 162. [facility] ED Course: 18:07 Patient arrived in ED. rg4 18:12 Arm band placed on. mb9 18:19 Triage completed. mb9 18:22 Gayathri Paulino, ARTHUR is Primary Nurse. nj1 18:27 Mickey Mcintosh MD is Attending Physician. [facility] 18:30 Patient has correct armband on for positive identification. Bed in low position. Call [facility] light in reach. Side rails up X 1. 19:00 initiated transfer to [facility], pt accepted in transfer by Dr oropeza, admin bd approval given by Darshana Ruffin. pt going to L\\T\\D. 19:09 US OB Limited In Process Unspecified. EDMS 19:30 Assist provider with pelvic exam: Performed by Mickey Mcintosh MD Patient tolerated well.nj1 20:25 Patient transferred, IV remains in place. nj1 Administered Medications: 18:40 Drug: NS 0.9% IV 1000 ml Route: IV; Rate: 1 bolus; Site: left antecubital; nj1 19:40 Follow up: Response: No adverse reaction; IV Status: Completed infusion; IV Intake: nj1 1000ml Medication: 20:25 VIS not applicable for this client. nj1 Intake: 19:40 IV: 1000ml; Total: 1000ml. nj1 Outcome: 18:45 ER care complete, transfer ordered by . shanelle 20:25 Transferred by ground EMS to [facility], Transfer form nj1 completed. Note: Report given to Isidro COATES from [facility]. 20:25 Condition: stable 20:25 Instructed on the need for admit. 20:25 Patient left the ED. nj1 Signatures: Dispatcher [employer] EDMS Linda Williamson Corey, MD MD cha Garcia, Rubi rg4 Mercedez, Waleska Hendrickson, RN RN mb9 Gayathri Paulino RN RN nj1 Corrections: (The following items were deleted from the chart) 21:08 21:08 Patient left the ED. nj1 nj1
[2023-01-20 19:09] LABS: Absolute Lymphocytes (CBC) 1.9 K/uL (0.7-4.9); Hematocrit 31.6 % (36.0-45.0); Lymphocytes % 25.1 % (15.3-44.8); MCV 91.9 fL (80-100); MPV 7.3 fL (7.6-11.3); RBC Red Blood Cell Count 3.44 M/uL (3.86-4.86)
--- NOTE | 2023-01-20 19:17 | RAD REPORT ---
EXAM DESCRIPTION: US - OB Limited - 01/20/2023 7:07 pm CLINICAL HISTORY: ABD CRAMPING, COMPARISON: No comparisons TECHNIQUE: Sonographic grayscale and color flow images of a third -trimester were obtained through approach. FINDINGS: A single live intrauterine is identified in cephalic presentation. heart r ate: 162 BPM. Placenta has formed anteriorly. Margin of the placenta is clear of the internal cervical os, which ap pears closed. Subjectively normal amniotic fluid volume. age is calculated at 33 weeks and 0 days by femur length. Limited visualization of the adnexal structures bilaterally without gross abnormalities. No free fluid. IMPRESSION: 1. Single live intrauterine . No evidence of placenta previa. Patent age calcul ated at 33 weeks and 0 days.
[2023-01-20 19:24] LABS: Potassium 3.5 mEq/L (3.5-5.1)
[2023-01-20 20:50] LABS: Specific Gravity 1.005 (1.005-1.030); Urine Bilirubin NEGATIVE (Negative); Urine Blood Negative (Negative); Urine Clarity Clear (Clear); Urine Color Colorless (Yellow); Urine Glucose NEGATIVE (Negative); Urine Protein NEGATIVE (Negative); Urine Urobilinogen Normal (Normal); Urine pH 6.5 (5.0-7.0)
[2023-01-20 20:54] LABS: Specific Gravity 1.005 (1.005-1.030)
== END 2023-01-20 21:08 | disposition short-term general hospital (02) ==
LOC: ER 18:05
DX: O26.891 Other specified pregnancy related conditions, first trimester (principal); R10.817 Generalized abdominal tenderness; Z3A.30 30 weeks gestation of pregnancy
CPT/HCPCS: 85025; 80048; 36415; 86900; 81025; 86901; 81003; 76815; 96360; 99285; J7030